=== PATIENT | female | born 1945 | race Caucasian/White ===

== ENCOUNTER 2020-02-02 14:14 | Inpatient (IN) | payer OTHER, SELFPAY ==
[~2020-02-02] VITALS: Ht 152.4 cm; Wt 73.0 kg
[2020-02-02 14:27] VITALS: BP_SYST 135
[2020-02-02 14:55] LABS: BASOPHILS % (AUTO) 0.5 % (0.0-2.0); EOSINOPHILS # (AUTO) 0.1 K/uL (0.0-0.4); EOSINOPHILS % (AUTO) 1.5 % (0.0-4.0); HEMATOCRIT 22.2 % (36-48); HEMOGLOBIN 7.3 g/dL (12.0-16.0); LYMPHOCYTES # (AUTO) 1.8 K/uL (1.0-5.5); LYMPHOCYTES % (AUTO) 22.6 % (20.5-51.5); MEAN CORPUSCULAR HEMOGLOBIN 32 pg (27-31); MEAN CORPUSCULAR HGB CONC 33 % (32-36); MEAN CORPUSCULAR VOLUME 96 fL (79.0-98.0); MONOCYTES # (AUTO) 1.1 K/uL (0.0-1.0); MONOCYTES % (AUTO) 13.2 % (1.7-9.3); NEUTROPHILS % (AUTO) 62.2 % (40.0-70.0); PLATELET COUNT (AUTO) 248 K/uL (130-430); RED BLOOD CELL COUNT(AUTO) 2.33 MIL/uL (4.2-6.2); RED CELL DISTRIBUTION WIDTH 14.3 % (9.0-15.0); WHITE BLOOD COUNT (AUTO) 8.1 K/uL (4.8-10.8)
[2020-02-02 15:18] LABS: ALANINE AMINOTRANSFERASE 52 U/L (12-78); ALBUMIN 2.3 g/dL (3.4-4.8); ASPARTATE AMINOTRANSFERASE 75 U/L (10-37); CALCIUM 8.2 mg/dL (8.4-11.0); CHLORIDE 99 mmol/L (98-107); CREATININE 5.19 mg/dL (0.55-1.30); GLUCOSE 133 mg/dL (70-99); LIPASE 159 U/L (73-393); SODIUM SERUM 135 mmol/L (136-145); TOTAL BILIRUBIN 0.5 mg/dL (0.0-1.0); UREA NITROGEN, BLOOD 29 mg/dL (8-21)
[2020-02-02 15:31] LABS: ANION GAP 7 (5-15)
[2020-02-02] MEDS ORDERED: NIFE-55 PO (15:43)
[2020-02-02] MEDS ORDERED: LIP80 PO (15:43)
[2020-02-02] MEDS ORDERED: METO-290 PO (15:43)
[2020-02-02] MEDS ORDERED: ASPI-1026 PO (15:43)
[2020-02-02] MEDS ORDERED: NEPH PO (15:43)
[2020-02-02] MEDS ORDERED: GABA-533 PO (15:43)
[2020-02-02] MEDS ORDERED: HYDR-4037 PO (15:43)
[2020-02-02] MEDS ORDERED: VITAMIN D PO (15:43)
[2020-02-02] MEDS ORDERED: COR25 PO (15:43)
[2020-02-02] MEDS ORDERED: CLON0.5T4 PO (15:43)
[2020-02-02] MEDS ORDERED: CIPR250T4 PO (15:43)
[2020-02-02] MEDS ORDERED: FURO-149 PO (15:43)
[2020-02-02] MEDS ORDERED: ASPI1POW6 PO (15:43)
[2020-02-02] MEDS ORDERED: PRO40 PO (15:43)
[2020-02-02] MEDS ORDERED: MONT10TA27 PO (15:43)
[2020-02-02 18:08] LABS: BILIRUBIN,URINE NEGATIVE (NEGATIVE); BLOOD, URINE 1+ (NEGATIVE); CLARITY/URINE CLOUDY (CLEAR); COLOR,URINE YELLOW (YELLOW); GLUCOSE,URINE NEGATIVE (NEGATIVE); KETONES,URINE NEGATIVE (NEGATIVE); LEUKOCYTE ESTERASE ,URINE TRACE (NEGATIVE); NITRITE, URINE NEGATIVE (NEGATIVE); PH,URINE 5.5 (5.0-8.0); PROTEIN URINE 2+ (NEGATIVE); UROBILINOGEN,URINE 0.2 (0.2-1.0)
[2020-02-02 18:25] VITALS: BP_SYST 150
[2020-02-02 18:39] LABS: BACTERIA,URINE FEW /HPF (None Seen)
[2020-02-02 18:40] LABS: COARSE GRANULAR CASTS,URINE 0-10 /LPF (None Seen); MUCUS,URINE None Seen /LPF (None Seen); URINE AMORPHOUS URATE 3+ /HPF (None Seen); YEAST,URINE Moderate /HPF (None Seen)
[2020-02-02] MEDS ORDERED: ALBUTEROL SULFATE 0.083% 2.5 MG/3 ML VIAL.NEB INH PRN (19:15)
[2020-02-02] MEDS ORDERED: METOCLOPRAMIDE HCL 10 MG TABLET PO PRN (19:30)
[2020-02-02 20:00] VITALS: BP_SYST 146
[2020-02-02 20:50] VITALS: BP_SYST 146
[2020-02-02] MEDS: CARVEDILOL 25 MG TABLET (COREG) PO SCH (21:01)
[2020-02-02] MEDS: clonazePAM 0.5 MG TABLET PO SCH (21:02)
[2020-02-02] MEDS: GABAPENTIN 300 MG CAPSULE PO SCH (21:02)
[2020-02-02] MEDS: NORMAL SALINE 5 ML DISP.SYRIN IVF SCH (21:03)
[2020-02-02] MEDS: NIFEdipine 30 MG TAB.ER.24 PO SCH (21:03)
[2020-02-02] MEDS: hydrALAZINE HCL 10 MG TABLET PO SCH (21:06)
[2020-02-02] MEDS ORDERED: guaiFENesin/DEXTROMETHORPHAN 10 ML UDC PO PRN (23:45)
[2020-02-03 00:55] VITALS: BP_SYST 126
[2020-02-03] MEDS: hydrALAZINE HCL 10 MG TABLET PO SCH ×3 (04:30→19:30)
[2020-02-03 04:51] VITALS: BP_SYST 126
[2020-02-03] MEDS: NORMAL SALINE 5 ML DISP.SYRIN IVF SCH ×3 (07:10→22:00)
[2020-02-03 08:00] VITALS: BP_SYST 117
[2020-02-03 08:01] LABS: BASOPHILS # (AUTO) 0.1 K/uL (0.0-0.2); BASOPHILS % (AUTO) 0.7 % (0.0-2.0); EOSINOPHILS # (AUTO) 0.2 K/uL (0.0-0.4); EOSINOPHILS % (AUTO) 3.3 % (0.0-4.0); HEMATOCRIT 22.3 % (36-48); HEMOGLOBIN 7.2 g/dL (12.0-16.0); LYMPHOCYTES # (AUTO) 1.3 K/uL (1.0-5.5); LYMPHOCYTES % (AUTO) 19.4 % (20.5-51.5); MEAN CORPUSCULAR HEMOGLOBIN 31 pg (27-31); MEAN CORPUSCULAR HGB CONC 32 % (32-36); MEAN CORPUSCULAR VOLUME 96 fL (79.0-98.0); MONOCYTES # (AUTO) 0.8 K/uL (0.0-1.0); MONOCYTES % (AUTO) 11.1 % (1.7-9.3); NEUTROPHILS # (AUTO) 4.5 K/uL (1.8-7.7); NEUTROPHILS % (AUTO) 65.5 % (40.0-70.0); PLATELET COUNT (AUTO) 238 K/uL (130-430); RED BLOOD CELL COUNT(AUTO) 2.31 MIL/uL (4.2-6.2); RED CELL DISTRIBUTION WIDTH 14.8 % (9.0-15.0); WHITE BLOOD COUNT (AUTO) 6.9 K/uL (4.8-10.8)
[2020-02-03 08:04] LABS: ALANINE AMINOTRANSFERASE 53 U/L (12-78); ALBUMIN 2.3 g/dL (3.4-4.8); ANION GAP 10 (5-15); ASPARTATE AMINOTRANSFERASE 62 U/L (10-37); CALCIUM 8.5 mg/dL (8.4-11.0); CHLORIDE 98 mmol/L (98-107); CREATININE 6.16 mg/dL (0.55-1.30); GLUCOSE 155 mg/dL (70-99); POTASSIUM 4.3 mmol/L (3.5-5.1); SODIUM SERUM 136 mmol/L (136-145); TOTAL BILIRUBIN 0.6 mg/dL (0.0-1.0); UREA NITROGEN, BLOOD 37 mg/dL (8-21)
[2020-02-03] MEDS: NIFEdipine 30 MG TAB.ER.24 PO SCH ×2 (09:00→21:00)
[2020-02-03] MEDS: MONTELUKAST 10 MG TABLET PO SCH (11:00)
[2020-02-03] MEDS: ATORVASTATIN 20 MG TABLET PO SCH (11:00)
[2020-02-03] MEDS: ASPIRIN 81 MG TABLET(ECOTRIN) PO SCH (11:00)
[2020-02-03] MEDS: NEPHROVITE, (FOLIC ACID/VITAMIN B COMP W-C 1 TAB) PO SCH (11:00)
[2020-02-03] MEDS: FUROSEMIDE 40 MG TABLET PO SCH (11:00)
[2020-02-03] MEDS: clonazePAM 0.5 MG TABLET PO SCH ×2 (11:00→21:00)
[2020-02-03] MEDS: CARVEDILOL 25 MG TABLET (COREG) PO SCH ×2 (11:00→21:00)
[2020-02-03] MEDS: PANTOPRAZOLE SODIUM 40 MG TAB PO SCH (11:00)
[2020-02-03] MEDS: GABAPENTIN 300 MG CAPSULE PO SCH ×3 (11:00→21:00)
[2020-02-03] MEDS: CIPROFLOXACIN HCL 500 MG TABLET PO SCH (11:00)
[2020-02-03 20:00] VITALS: BP_SYST 124
[2020-02-03] MEDS: ASCORBIC ACID 500 MG TABLET PO SCH (21:00)
[2020-02-03] MEDS ORDERED: cefTRIAXone 1 GM in D5W 50 ML IV SCH (21:00)
[2020-02-04] VITALS: BP_SYST 106
[2020-02-04] MEDS ORDERED: cefTRIAXone 1 GM IVPB PREMIX 50 ML IV ONE (01:48)
[2020-02-04] MEDS: hydrALAZINE HCL 10 MG TABLET PO SCH ×2 (03:30→11:30)
[2020-02-04] MEDS: NORMAL SALINE 5 ML DISP.SYRIN IVF SCH ×2 (05:59→14:00)
[2020-02-04 09:00] VITALS: BP_SYST 124
[2020-02-04] MEDS: NIFEdipine 30 MG TAB.ER.24 PO SCH (09:00)
[2020-02-04] MEDS ORDERED: CHOLECALCIFEROL (VITAMIN D3) 2,000 UNIT TABLET PO SCH (09:00)
[2020-02-04] MEDS: ASPIRIN 81 MG TABLET(ECOTRIN) PO SCH (09:40)
[2020-02-04] MEDS: CIPROFLOXACIN HCL 500 MG TABLET PO SCH (09:40)
[2020-02-04] MEDS: clonazePAM 0.5 MG TABLET PO SCH (09:41)
[2020-02-04] MEDS: NEPHROVITE, (FOLIC ACID/VITAMIN B COMP W-C 1 TAB) PO SCH (09:41)
[2020-02-04] MEDS: ATORVASTATIN 20 MG TABLET PO SCH (09:41)
[2020-02-04] MEDS: GABAPENTIN 300 MG CAPSULE PO SCH ×2 (09:42→15:53)
[2020-02-04] MEDS: PANTOPRAZOLE SODIUM 40 MG TAB PO SCH (09:42)
[2020-02-04] MEDS: MONTELUKAST 10 MG TABLET PO SCH (09:43)
[2020-02-04] MEDS: FUROSEMIDE 40 MG TABLET PO SCH (10:18)
[2020-02-04] MEDS: CARVEDILOL 25 MG TABLET (COREG) PO SCH (10:18)
[2020-02-04] MEDS: ASCORBIC ACID 500 MG TABLET PO SCH (10:19)
[2020-02-04 12:00] VITALS: BP_SYST 108
[2020-02-04 15:00] VITALS: BP_SYST 110
[2020-02-04] MEDS: EPOETIN ALFA 3,000 UNITS/ML VIAL SUBCUT SCH ×2 (17:00→17:10)
[2020-02-04] MEDS ORDERED: FLUCONAZOLE 100 MG TABLET (DIFLUCAN) PO SCH (17:30)
[2020-02-04] MEDS ORDERED: ENOXAPARIN SODIUM 40 MG/0.4 ML SYRINGE SUBCUT ONE (18:15)
[2020-02-05] MEDS ORDERED: ENOXAPARIN SODIUM 40 MG/0.4 ML SYRINGE SUBCUT SCH (09:00)
== END 2020-02-04 18:45 | disposition left against medical advice (07) | DRG 177 ==
LOC: SED 14:14 → STU 17:10 → OBSVTOIN 02-04 08:21
PROVIDERS: ADMIT Internal Medicine Hospice and Palliative Medicine; ATTEND Internal Medicine Hospice and Palliative Medicine
PROC: 5A1D70Z Performance of Urinary Filtration, Intermittent, Less than 6 Hours Per Day (ICD-10-PCS; principal; 2020-02-04)
DX: U07.1 COVID-19 (principal); J12.89 Other viral pneumonia; N18.6 End stage renal disease; B37.49 Other urogenital candidiasis; I12.0 Hypertensive chronic kidney disease with stage 5 chronic kidney disease or end stage renal disease; R55 Syncope and collapse; G40.909 Epilepsy, unspecified, not intractable, without status epilepticus; J44.9 Chronic obstructive pulmonary disease, unspecified; Z53.29 Procedure and treatment not carried out because of patient's decision for other reasons; E11.22 Type 2 diabetes mellitus with diabetic chronic kidney disease; D63.1 Anemia in chronic kidney disease; R09.02 Hypoxemia; Z79.899 Other long term (current) drug therapy; Z88.5 Allergy status to narcotic agent
CPT/HCPCS: 36415; 70450-TC; 71045; 76376; 80053; 81000-TC; 82728; 82962; 83690-TC; 84484; 85025; 86140; 87081; 87086; 93005; 93306; 99285; G0378; J0696; J0885; J1650; J7060; U0003